=== PATIENT | male | born 1955 | race Caucasian/White ===

== ENCOUNTER 2017-06-10 00:23 | Emergency (ER) | payer BC ==
[~2017-06-10] VITALS: Ht 182.8 cm; Wt 84.8 kg
--- NOTE | ~2017-06-10 | EKG ---
[place], [place] ELECTROCARDIOGRAM REPORT NAME: ADI LEONARD UNIT #: [id number] ROOM: DOCTOR: SAFIA THOMAS,MARKOS BIRTHDATE: [birth year] DOS: 06/10/2017 TIME: 0055 hours. IMPRESSION: 1. Sinus rhythm. 2. 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 3. Baseline artifacts. 4. Normal QT interval. MARKOS BAIG MD CM:EKGRPT:ELECTROCARDIOGRAM REPORT [id number] MARKOS BAIG MD
[~2017-06-10 00:23] MED LIST: ATENOLOL50 M1 PO; FLEXERIL10 MG PO; JANUVIA100 MG PO; LISINOPRIL20 MG PO; METFORMIN HCL500 MG PO; PRAVASTATIN SOD40 MG PO; VICODIN ES 7501 TAB PO
[2017-06-10 00:48] LABS: HEMATOCRIT 47.1 % (42.0-52.0); HEMOGLOBIN 15.7 g/dl (14.0-18.0); MEAN CELL VOLUME 88.9 fl (80.0-94.0); MEAN CORPUSCULAR HGB 29.6 pg (27.0-31.0); MEAN CORPUSCULAR HGB CONC 33.3 g/dl (33.0-37.0); MEAN PLATELET VOLUME 10.3 fl (9.6-12.3); PLATELET COUNT AUTOMATED 274 10*3/uL (130-400); RED CELL DISTRI WIDTH 13.1 % (0-14.5); WHITE BLOOD COUNT 10.9 10*3/uL (4.8-10.8)
[2017-06-10 01:09] LABS: ALBUMIN 3.1 gm/dl (3.1-4.5); ALKALINE PHOSPHATASE 93 U/L (45-117); BUN 22 mg/dl (7-24); CHLORIDE 105 mmol/L (98-107); CREATININE 1.07 mg/dL (0.70-1.30); LIPASE 109 U/L (73-393); PLATELET SUFFICIENCY NORMAL (NORMAL); POTASSIUM 4.4 mmol/L (3.5-5.1); SGOT/AST 9 IU/L (3-35); SGPT/ALT 23 U/L (12-78); SODIUM 139 mmol/L (136-145); TOTAL CELLS COUNTED 100 #CELLS; TOTAL PROTEIN 7.2 gm/dL (6.4-8.2)
[2017-06-10 01:10] LABS: TROPONIN I < 0.015 ng/ml (<0.045)
[2017-06-10] MEDS ORDERED: IBU800 MG PO (02:37)
== END 2017-06-10 02:47 | disposition home or self-care (01) ==
LOC: ED 00:23
PROVIDERS: Student in an Organized Health Care Education/Training Program
DX: R10.30 Lower abdominal pain, unspecified (principal); F17.200 Nicotine dependence, unspecified, uncomplicated; Z79.899 Other long term (current) drug therapy